=== PATIENT | male | born 1965 | race Caucasian/White ===

== ENCOUNTER 2019-02-21 15:37 | Emergency (ER) | payer OTHER ==
--- NOTE | 2019-02-21 15:59 | EDM.PDOC ---
ED HPI GENERAL MEDICAL PROBLEM - General Stated Complaint: FALL Time Seen by Provider: 02/21/19 15:53 - History of Present Illness INITIAL COMMENTS - FREE TEXT/NARRATIVE: Pt presents with c/o chronic pain of the neck or back. Attempted to evaluate pt who became hostel and verbally abusive with my questions. Stated I would not take his abuse and if he continued this he would be discharged. PT continued to be verbally abusive states [facility] After 1 hr 51 minutes. PT relaxed and worked with provider. Lower Back Pain Score (Numeric/FACES): 10 ED ROS GENERAL - Review of Systems Review Of Systems: See Below Constitutional: Reports: No Symptoms HEENT: Reports: No Symptoms Respiratory: Reports: No Symptoms Cardiovascular: Reports: No Symptoms Endocrine: Reports: No Symptoms GI/Abdominal: Reports: No Symptoms Musculoskeletal: Reports: Back Pain ED EXAM, GENERAL - Physical Exam Exam: See Below Free Text/Narrative:: Patient not evaluated because he became openly hostel and aggressive with provider, law enforcement contacted. PT speaking in full sentences, tried to get off the gurney and come after provider able to move. Pt in no noticeable emergent situation, was not able to perform full exam due to hostel and aggressive behavior. After 1 hrs 52 minutes pt relaxed and worked with provider. Exam Limited By: No Limitations General Appearance: Alert, WD/WN, No Apparent Distress Ears: Normal External Exam Nose: Normal Inspection, Normal Mucosa, No Blood Neck: Other (neck pain ) Respiratory/Chest: No Respiratory Distress, Lungs Clear, Normal Breath Sounds, No Accessory Muscle Use, Chest Non-Tender Cardiovascular: Normal Peripheral Pulses GI/Abdominal: Normal Bowel Sounds, Soft, Non-Tender, No Organomegaly, No Distention, No Abnormal Bruit, No Mass Back Exam: Other (pain on t and l spine, hx of chronic back pain ) Extremities: Normal Inspection, Normal Range of Motion, Non-Tender, Normal Capillary Refill, No Pedal Edema Course - Vital Signs Last Recorded V/S: Last Vital Signs Temp 36.1 C 02/21/19 15:37 Pulse 66 02/21/19 15:37 Resp 20 02/21/19 15:37 BP 146/97 H 02/21/19 15:37 Pulse Ox 100 02/21/19 15:37 - Orders/Labs/Meds Orders: Active Orders 24 hr Category Date Time Status Cervical Spine 2V or 3V [CR] Stat Exams 02/21/19 17:33 Taken Lumbar Spine 2 or 3V [CR] Stat Exams 02/21/19 17:32 Taken Thoracic Spine 2V [CR] Stat Exams 02/21/19 17:30 Taken predniSONE [Take Home: predniSONE 20 MG, 2 Tab Pack] Med 02/21/19 18:18 Once 2 packet PO ONETIME ONE Meds: Medications Discontinued Medications Generic Name Dose Route Start Last Admin Trade Name Terence PRN Reason Stop Dose Admin Ketorolac Tromethamine 60 mg 02/21/19 17:32 02/21/19 17:50 Toradol IM 02/21/19 17:33 60 mg ONETIME ONE Administration Departure - Departure Time of Disposition: 18:22 Disposition: Home, Self-Care 01 Condition: Good Clinical Impression: Back pain - Discharge Information Instructions: Chronic Back Pain Additional Instructions: Follow up with pcp for continued care. Sepsis Event Note - Focused Exam Vital Signs: Vital Signs Temp Pulse Resp BP Pulse Ox 02/21/19 15:37 36.1 C 66 20 146/97 H 100 Date Exam was Performed: 02/21/19 Time Exam was Performed: 18:20 - My Orders Last 24 Hours: My Active Orders 02/21/19 17:30 Thoracic Spine 2V [CR] Stat 02/21/19 17:32 Lumbar Spine 2 or 3V [CR] Stat 02/21/19 17:33 Cervical Spine 2V or 3V [CR] Stat 02/21/19 18:18 predniSONE [Take Home: predniSONE 20 MG, 2 Tab Pack] 2 packet PO ONETIME ONE - Assessment/Plan Last 24 Hours: My Active Orders 02/21/19 17:30 Thoracic Spine 2V [CR] Stat 02/21/19 17:32 Lumbar Spine 2 or 3V [CR] Stat 02/21/19 17:33 Cervical Spine 2V or 3V [CR] Stat 02/21/19 18:18 predniSONE [Take Home: predniSONE 20 MG, 2 Tab Pack] 2 packet PO ONETIME ONE
[2019-02-21] MEDS ORDERED: Ketorolac 60 MG/2 ML SDV IM ONE (17:32)
[2019-02-21] MEDS ORDERED: Take Home: predniSONE 20 MG, 2 Tab Pack PO ONE (18:18)
--- NOTE | 2019-02-21 18:35 | CR ---
[id number] RAD/RAD Cervical Spine 2-3V Exam: RAD Cervical Spine 2-3V Indication:CHRONIC NECK PAIN. Comparison: No prior imaging for comparison. Discussion: Postsurgical change from discectomy and anterior fusion at C5-6 and C6-7. Fused vertebral bodies are in normal alignment. Moderate spondylosis with intervertebral disc height loss at C3-4 and C4-5 as well as C7-T1. No acute fracture or spondylolisthesis. Impression: No acute findings. Rosalio Malcolm MD 02/21/19 1830 Thank you for allowing us to participate in the care of your patient.
--- NOTE | 2019-02-21 18:36 | CR ---
[id number] RAD/RAD Thoracic Spine 2V Exam: RAD Thoracic Spine 2V Indication:PAIN. Comparison: No prior imaging for comparison. Discussion: Multiple moderate changes of spondylosis diffusely throughout the thoracic spine. No radiographically evident acute fracture or compression deformity. No spondylolisthesis. PA view demonstrates slight thoracolumbar levo convexity. Impression: No acute findings. Rosalio Malcolm MD 02/21/19 [id number] Thank you for allowing us to participate in the care of your patient.
--- NOTE | 2019-02-21 18:36 | CR ---
[id number] RAD/RAD Lumbar Spine 2-3V Exam: RAD Lumbar Spine 2-3V Indication:PAIN. Comparison: No prior imaging for comparison. Discussion: Spondylosis, including facet joint arthropathy at L4-5 resulting in grade 1 L4-5 anterolisthesis. Degenerative disc disease and intervertebral disc height loss at L3-4 through L5-S1. No spondylolisthesis. No acute fracture or compression deformity. Impression: No acute findings. Rosalio Malcolm MD 02/21/19 4842 Thank you for allowing us to participate in the care of your patient.
== END 2019-02-21 18:41 | disposition home or self-care (01) ==
LOC: VM.ED 15:37
DX: M54.5 Low back pain (principal); M54.6 Pain in thoracic spine; M54.2 Cervicalgia
CPT/HCPCS: 72040; 72070; 72100; 96372; 99283-GF; 99284-25; A9270-GY; J1885

== ENCOUNTER 2019-03-04 22:08 | Emergency (ER) | payer OTHER, MEDICARE ==
--- NOTE | 2019-03-04 22:56 | EDM.PDOC ---
ED HPI GENERAL MEDICAL PROBLEM - General Chief Complaint: General Stated Complaint: Back pain, ETOH abuse Time Seen by Provider: 03/04/19 22:12 Source of Information: Reports: Patient History Limitations: Reports: No Limitations - History of Present Illness INITIAL COMMENTS - FREE TEXT/NARRATIVE: Pt. presents to ER via EMS. Law enforcement and subsequently EMS was contacted tonight for a welfare check on this patient. Pt. has a history of previous back injury and PTSD and is using alcohol to self medicate. Pt. was in the ER approx. 10 days ago for a fall. Imaging of his spine was negative for acute pathology. Pt. neighbor came to check on him at the request of the patient's mother and he was unable to arouse the patient so the neighbor called 911. Pt. admits to drinking. He was ambulatory on scene and was cooperative. Pt. was alert to self and place, was one day off on date, but is coherently able to recall his past medical history. He states that he has been taking his gabapentin, quitiapine, and hydroxyzine as directed, and states that he sleeps very deeply on these medications, particularly if he is drinking. The [facility] 's conference service coordinator [facility] Pt. denies any severity in the symptoms. No recent trauma. Denies any suicidal or homicidal ideation. Pt. denies any saddle anesthesia or incontinence. Onset: Today Onset Date: 03/04/19 Location: Reports: Back Quality: Reports: Ache, Throbbing Severity: Moderate Improves with: Reports: Rest Worsens with: Reports: Movement Low back pain Pain Score (Numeric/FACES): 10 - Related Data Allergies Allergy/AdvReac Type Severity Reaction Status Date / Time No Known Allergies Allergy Verified 03/04/19 22:59 Home Meds: Home Meds Gabapentin [Neurontin] 800 mg PO TID 03/04/19 [History] Minocycline [Minocin] 100 mg PO BID 03/04/19 [History] Multivitamin [Multi-Vitamin Daily] 1 tab PO DAILY 03/04/19 [History] Propranolol [Inderal] 20 mg PO TID 03/04/19 [History] QUEtiapine Fumarate [Quetiapine Fumarate] 100 mg PO BEDTIME 03/04/19 [History] Thiamine [Vitamin B-1] 100 mg PO DAILY 03/04/19 [History] hydrOXYzine HCL [hydrOXYzine] 100 mg PO QID PRN 03/04/19 [History] Past Medical History Musculoskeletal History: Reports: Back Pain, Chronic Psychiatric History: Reports: Anxiety, Depression, PTSD - Past Surgical History GI Surgical History: Reports: Hernia Repair/Other Musculoskeletal Surgical History: Reports: Other (See Below) Other Musculoskeletal Surgeries/Procedures:: plate in neck ED ROS GENERAL - Review of Systems Review Of Systems: See Below Constitutional: Reports: No Symptoms HEENT: Reports: No Symptoms Respiratory: Reports: No Symptoms Cardiovascular: Reports: No Symptoms Endocrine: Reports: No Symptoms GI/Abdominal: Reports: No Symptoms : Reports: No Symptoms Musculoskeletal: Reports: Back Pain Skin: Reports: No Symptoms Neurological: Reports: No Symptoms Psychiatric: Reports: Anxiety, Other (PTSD). Denies: Homicidal Ideation, Suicidal Ideation Hematologic/Lymphatic: Reports: No Symptoms Immunologic: Reports: No Symptoms ED EXAM, GENERAL - Physical Exam Exam: See Below Exam Limited By: No Limitations General Appearance: Alert, WD/WN, No Apparent Distress Eye Exam: Bilateral Eye: EOMI, PERRL Nose: Normal Inspection, No Blood Throat/Mouth: No Airway Compromise Head: Atraumatic, Normocephalic Neck: Normal Inspection, Supple, Non-Tender, Full Range of Motion Respiratory/Chest: No Respiratory Distress, Lungs Clear, Normal Breath Sounds, No Accessory Muscle Use, Chest Non-Tender Cardiovascular: Normal Peripheral Pulses, Regular Rate, Rhythm, No Edema, No Gallop, No JVD, No Murmur, No Rub Peripheral Pulses: 4+: Radial (L) GI/Abdominal: Soft, Non-Tender, No Organomegaly, No Distention, No Mass (Male) Exam: Deferred Rectal (Males) Exam: Deferred Back Exam: Decreased Range of Motion, Muscle Spasm, Paraspinal Tenderness, Vertebral Tenderness Extremities: Normal Inspection, Normal Range of Motion, Non-Tender, No Pedal Edema, Normal Capillary Refill Neurological: Alert, Oriented, CN II-XII Intact, Normal Cognition, Normal Gait, Normal Reflexes, No Motor/Sensory Deficits Psychiatric: Normal Affect, Normal Mood Skin Exam: Warm, Dry, Intact, Normal Color, No Rash Lymphatic: No Adenopathy Course - Vital Signs Last Recorded V/S: Last Vital Signs Temp 37.1 C 03/04/19 22:08 Pulse 80 03/04/19 22:08 Resp 16 03/04/19 22:08 BP 108/79 03/04/19 22:08 Pulse Ox 97 03/04/19 22:08 - Orders/Labs/Meds Labs: Laboratory Tests 03/04/19 03/04/19 03/04/19 Range/Units 22:50 22:50 22:50 WBC 5.3 (4.0-10.0) x10^3/uL RBC 4.25 L (4.5-6.0) x10^6/uL Hgb 12.4 L (14.0-18.0) g/dL Hct 36.4 L (40.0-52.0) % MCV 85.6 (78.0-93.0) fL MCH 29.2 (26.0-32.0) pg MCHC 34.1 (32.0-36.0) g/dL RDW Coeff of Nixon 16.3 H (10.0-15.0) % Plt Count 130 (130-400) x10^3/uL Neut % (Auto) 49.0 L (50.0-80.0) % Lymph % (Auto) 37.7 (25.0-50.0) % Gregory % (Auto) 10.2 (2.0-11.0) % Eos % (Auto) 2.3 (0.0-4.0) % Baso % (Auto) 0.8 (0.2-1.2) % PT 10.0 (10.0-12.8) SEC INR 0.9 L (2.0-3.5) Sodium 144 (136-145) mmol/L Potassium 4.2 (3.5-5.1) mmol/L Chloride 105 (98-107) mmol/L Carbon Dioxide 28 (21-32) mmol/L Anion Gap 15.2 (10-20) mmol/L BUN 11 (7-18) mg/dL Creatinine 0.9 (0.70-1.30) mg/dL Est Cr Clr Drug Dosing 90.78 mL/min Estimated GFR (MDRD) > 60 Glucose 69 L (74-106) mg/dL Calcium 8.5 (8.5-10.1) mg/dL Corrected Calcium 9.06 (8.5-10.1) mg/dL Magnesium 2.3 (1.8-2.4) mg/dL Total Bilirubin 0.2 (0.2-1.0) mg/dL AST 20 (15-37) U/L ALT 17 (16-63) U/L Alkaline Phosphatase 106 (46-116) U/L Total Protein 6.9 (6.4-8.2) g/dL Albumin 3.3 L (3.4-5.0) g/dL Globulin 3.6 Albumin/Globulin Ratio 0.92 Urine Color (YELLOW) Urine Appearance (CLEAR) Urine pH (5.0-8.0) Ur Specific [place] Urine Protein (NEGATIVE) mg/dL Urine Glucose (UA) (NEGATIVE) mg/dL Urine Ketones (NEGATIVE) mg/dL Urine Occult Blood (NEGATIVE) Urine Nitrite (NEGATIVE) Urine Bilirubin (NEGATIVE) Urine Urobilinogen (0.2) EU/dL Ur Leukocyte Esterase (NEGATIVE) Urine RBC (NOT SEEN) /HPF Urine WBC (NOT SEEN) /HPF Ur Squamous Epith Cells (NEGATIVE) /HPF Urine Bacteria (NEGATIVE) /HPF Urine Mucus (NEGATIVE) /LPF Urine Opiates Screen (NEGATIVE) Ur Buprenorphine Scrn (NEGATIVE) Ur Oxycodone Screen (NEGATIVE) Ur EDDP (Meth Metab) (NEGATIVE) Urine Methadone Screen (NEGATIVE) Ur Barbituates Screen (NEGATIVE) Ur Tricyclics Screen (NEGATIVE) Ur Phencyclidine Scrn (NEGATIVE) Ur Amphetamines Screen (NEGATIVE) U Methamphetamines Scrn (NEGATIVE) Urine MDMA Screen (NEGATIVE) U Benzodiazepines Scrn (NEGATIVE) Urine Cocaine Screen (NEGATIVE) U Marijuana (THC) Screen (NEGATIVE) Ethyl Alcohol 124 H (0-3) mg/dL 03/04/19 03/04/19 Range/Units 23:05 23:05 WBC (4.0-10.0) x10^3/uL RBC (4.5-6.0) x10^6/uL Hgb (14.0-18.0) g/dL Hct (40.0-52.0) % MCV (78.0-93.0) fL MCH (26.0-32.0) pg MCHC (32.0-36.0) g/dL RDW Coeff of Nixon (10.0-15.0) % Plt Count (130-400) x10^3/uL Neut % (Auto) (50.0-80.0) % Lymph % (Auto) (25.0-50.0) % Gregory % (Auto) (2.0-11.0) % Eos % (Auto) (0.0-4.0) % Baso % (Auto) (0.2-1.2) % PT (10.0-12.8) SEC INR (2.0-3.5) Sodium (136-145) mmol/L Potassium (3.5-5.1) mmol/L Chloride (98-107) mmol/L Carbon Dioxide (21-32) mmol/L Anion Gap (10-20) mmol/L BUN (7-18) mg/dL Creatinine (0.70-1.30) mg/dL Est Cr Clr Drug Dosing mL/min Estimated GFR (MDRD) Glucose (74-106) mg/dL Calcium (8.5-10.1) mg/dL Corrected Calcium (8.5-10.1) mg/dL Magnesium (1.8-2.4) mg/dL Total Bilirubin (0.2-1.0) mg/dL AST (15-37) U/L ALT (16-63) U/L Alkaline Phosphatase (46-116) U/L Total Protein (6.4-8.2) g/dL Albumin (3.4-5.0) g/dL Globulin Albumin/Globulin Ratio Urine Color Yellow (YELLOW) Urine Appearance Clear (CLEAR) Urine pH 5.5 (5.0-8.0) Ur Specific [place] <=1.005 Urine Protein Negative (NEGATIVE) mg/dL Urine Glucose (UA) Negative (NEGATIVE) mg/dL Urine Ketones Negative (NEGATIVE) mg/dL Urine Occult Blood Negative (NEGATIVE) Urine Nitrite Negative (NEGATIVE) Urine Bilirubin Negative (NEGATIVE) Urine Urobilinogen 0.2 (0.2) EU/dL Ur Leukocyte Esterase Negative (NEGATIVE) Urine RBC 0-5 (NOT SEEN) /HPF Urine WBC Not seen (NOT SEEN) /HPF Ur Squamous Epith Cells Rare (NEGATIVE) /HPF Urine Bacteria Not seen (NEGATIVE) /HPF Urine Mucus Rare H (NEGATIVE) /LPF Urine Opiates Screen Negative (NEGATIVE) Ur Buprenorphine Scrn Negative (NEGATIVE) Ur Oxycodone Screen Negative (NEGATIVE) Ur EDDP (Meth Metab) Negative (NEGATIVE) Urine Methadone Screen Negative (NEGATIVE) Ur Barbituates Screen Negative (NEGATIVE) Ur Tricyclics Screen Positive H (NEGATIVE) Ur Phencyclidine Scrn Negative (NEGATIVE) Ur Amphetamines Screen Negative (NEGATIVE) U Methamphetamines Scrn Negative (NEGATIVE) Urine MDMA Screen Negative (NEGATIVE) U Benzodiazepines Scrn Negative (NEGATIVE) Urine Cocaine Screen Negative (NEGATIVE) U Marijuana (THC) Screen Negative (NEGATIVE) Ethyl Alcohol (0-3) mg/dL Departure - Departure Time of Disposition: 00:12 Disposition: Home, Self-Care 01 Clinical Impression: Intoxication, Low back pain - Discharge Information Referrals: PCP,Not In Area [Primary Care Provider] - Forms: ED Department Discharge, Interfacility Transfer EMTALA Sepsis Event Note - Focused Exam Vital Signs: Vital Signs Temp Pulse Resp BP Pulse Ox 03/04/19 22:08 37.1 C 80 16 108/79 97 Date Exam was Performed: 03/05/19 Time Exam was Performed: 00:12 - Problem List Review Problem List Initiated/Reviewed/Updated: Yes - Assessment/Plan Plan: Pt. will be transferred to [facility] via EMS. I spoke with both psych and IM regarding this patient. They will have a room for the patient. All questions were answered. Dr. Pisano is accepting.
[2019-03-04 23:17] LABS: CHLORIDE,CL 105 mmol/L (98-107); SODIUM,NA 144 mmol/L (136-145)
[2019-03-04 23:19] LABS: ANION GAP 15.2 mmol/L (10-20)
[2019-03-04 23:24] LABS: BUPRENORPHINE,URINE NEGATIVE (NEGATIVE); METHYLENEDIOXYMETHAMP,UR NEGATIVE (NEGATIVE); PHENCYCLIDINE,URINE NEGATIVE (NEGATIVE)
[2019-03-04 23:25] LABS: MARIJUANA,URINE NEGATIVE (NEGATIVE)
== END 2019-03-05 00:30 | disposition home or self-care (01) ==
LOC: VM.ED 22:08
DX: F10.129 Alcohol abuse with intoxication, unspecified (principal); M54.5 Low back pain; Y90.6 Blood alcohol level of 120-199 mg/100 ml; F32.9 Major depressive disorder, single episode, unspecified
CPT/HCPCS: 36415; 80053; 80305-QW; 81001; 83735; 85025; 85610; 99284-GF; 99285; G0480

== ENCOUNTER 2020-10-12 18:39 | Emergency (ER) | payer OTHER, MEDICARE ==
[2020-10-12] MEDS ORDERED: Lactated Ringers 1,000 ML IV ONE (19:44)
[2020-10-12 19:48] LABS: CHLORIDE,CL 103 mmol/L (98-107); SODIUM,NA 137 mmol/L (136-145)
[2020-10-12 19:49] LABS: ANION GAP 13.7 mmol/L (5-15)
--- NOTE | 2020-10-12 20:03 | CT ---
[id number] CT/CT Head WO IV EXAM: CT Head WO IV CLINICAL DATA: SYNCOPE, FALL, RECENT TBI COMPARISON STUDY: None FINDINGS: No intracranial hemorrhage, extra-axial fluid collection, mass, or acute ischemia. Soft tissues are unremarkable. Paranasal sinuses and mastoid air cells are clear. IMPRESSION: No acute intracranial findings. Gucci Arnold DO 10/12/202000 Thank you for allowing us to participate in the care of your patient.
--- NOTE | 2020-10-12 20:05 | CT ---
[id number] CT/CT Cervical Spine WO IV Exam: CT Cervical Spine WO IV CLINICAL DATA: TRAUMA. COMPARISON: None. FINDINGS: No fracture or subluxation is seen. The C1-C2 articulation is unremarkable. The prevertebral soft tissues are within normal limits. Postsurgical changes following anterior spinal fusion of C5-C7. No evidence of hardware failure or loosening. IMPRESSION: NO FRACTURE OR SUBLUXATION. Gucci Arnold DO 10/12/202002 Thank you for allowing us to participate in the care of your patient.
[2020-10-12 20:20] LABS: BARBITURATE SCREEN,URINE NEGATIVE (NEGATIVE); BENZODIAZEPINES SCREEN,URINE NEGATIVE (NEGATIVE); METHAMPHETAMINE SCREEN, URINE NEGATIVE (NEGATIVE); THC SCREEN,URINE 50 NG/ML POSITIVE (NEGATIVE)
[2020-10-12] MEDS ORDERED: Thiamine 500 MG in Sodium Chloride 0.9% 100 ML IV ONE (20:59)
[2020-10-12] MEDS ORDERED: Multivitamins w-Iron/Ca/FA/Min 1 TAB, Thiamine 100 MG, Folic Acid 1 MG, Magnesium Oxide... PO ONE ×3 (20:59)
[2020-10-12] MEDS ORDERED: Sodium Chloride 0.9% 1,000 ML IV SCH (21:15)
--- NOTE | 2020-10-12 21:23 | EDM.PDOC ---
ED HPI GENERAL MEDICAL PROBLEM - General Chief Complaint: Neurological Problem Stated Complaint: Syncopal episode, neck pain, intoxication Time Seen by Provider: 10/12/20 18:40 Source of Information: Reports: Patient, Family History Limitations: Reports: No Limitations - History of Present Illness INITIAL COMMENTS - FREE TEXT/NARRATIVE: Patient comes emergency department today by ambulance from home with concerns of syncope fall and alcoholism. Patient has a chronic past medical history of daily alcohol usage of anywhere from 8-12 beers a day. He has a history of PTSD as well as cervical spine fixation due to chronic neck pain. Over the past 3 to 4 weeks he has had increasing usage of alcohol at home. He has an episode where he relates about 3-4 times a week where he is just walking along suddenly "blacks out" and ends up on the ground. He has no aura or symptoms prior to this blackout episode. He has never sustained any injuries from his episodes of syncope. He wakes up on the ground. This has become increasingly more frequent over the past couple of weeks. He never has any chest pain shortness of breath vertigo dizziness diplopia palpitations lightheadedness or dizziness prior to these episodes. He has no warning signs of these. Today when he was at home this was once again observed by of family member that lives at home with him there was no loss of consciousness. He does complain of chronic headache nothing new today. He does complain of chronic neck pain nothing new today. He denies any paresthesias of his upper or lower extremities. He denies any change in the functionality of his upper or lower extremities. He denies any diplopia blurred vision. No fever no chills. No chest pain or shortness of breath or difficulty breathing or palpitations. No abdominal pain nausea or vomiting. No hematuria dysuria urinary frequency. No black or tarry stools. He does relate that he drinks alcohol on a daily basis although he rarely if ever has any solid food for consumption as he feels that it makes him sick when he consumes this. He is uninterested in alcohol treatment today. He does take his thiamine daily. He has never been evaluated for these episodes of blacking out. Neck Pain Score (Numeric/FACES): 4 - Related Data Allergies Allergy/AdvReac Type Severity Reaction Status Date / Time No Known Allergies Allergy Verified 10/12/20 18:54 Home Meds: Home Meds Minocycline [Minocin] 100 mg PO BID 03/04/19 [History] Multivitamin [Multi-Vitamin Daily] 1 tab PO DAILY 03/04/19 [History] Propranolol [Inderal] 20 mg PO TID 03/04/19 [History] QUEtiapine Fumarate [Quetiapine Fumarate] 100 mg PO BEDTIME 03/04/19 [History] Thiamine [Vitamin B-1] 100 mg PO DAILY 03/04/19 [History] hydrOXYzine HCL [hydrOXYzine] 100 mg PO QID PRN 03/04/19 [History] Prazosin [Minpress] 1 mg PO DAILY 10/12/20 [History] Prazosin [Minpress] 2 mg PO BEDTIME 10/12/20 [History] atorvaSTATin [Lipitor] 20 mg PO BEDTIME 10/12/20 [History] Past Medical History Musculoskeletal History: Reports: Back Pain, Chronic Psychiatric History: Reports: Anxiety, Depression, PTSD - Past Surgical History GI Surgical History: Reports: Hernia Repair/Other Musculoskeletal Surgical History: Reports: Other (See Below) Other Musculoskeletal Surgeries/Procedures:: plate in neck Social & Family History - Tobacco Use Tobacco Use Status *Q: Unknown Ever Used Tobacco - Recreational Drug Use Recreational Drug Use: Yes Recreational Drug Type: Reports: Marijuana/Hashish ED ROS GENERAL - Review of Systems Review Of Systems: Comprehensive ROS is negative, except as noted in HPI. ED EXAM, NEURO - Physical Exam Exam: See Below Text/Narrative:: Smells highly of alcoholic beverages. C Collar in place. ALert appropriate and cooperative and without distress. Exam Limited By: Intoxication General Appearance: Alert, WD/WN, No Apparent Distress Eye Exam: Bilateral Eye: EOMI, Nystagmus (Hyizontal nystagmus minimal), PERRL Ears: Normal External Exam, Normal TMs Nose: Normal Inspection Throat/Mouth: Normal Inspection, Normal Lips, Normal Oropharynx Head Exam: Atraumatic, Normocephalic Neck: Normal Inspection, Supple, Non-Tender, Full Range of Motion. No: Tender Lateral, Tender Midline Respiratory/Chest: No Respiratory Distress, Lungs Clear, Normal Breath Sounds, No Accessory Muscle Use, Chest Non-Tender Cardiovascular: Normal Peripheral Pulses, Regular Rate, Rhythm, No Edema, No Murmur GI/Abdominal: Normal Bowel Sounds, Soft, Non-Tender, No Distention, No Abnormal Bruit (Male) Exam: Deferred Rectal (Males) Exam: Deferred Neurological: Alert, Normal Mood/Affect, Normal Dorsiflexion, CN II-XII Intact, Normal Plantar Flexion, Normal Reflexes, No Motor/Sensory Deficits, Oriented x 3, Other (Mild ataxia unsure if it is related to intoxication or underlying pathology. ) DTR: 2+: Bicep (R), Bicep (L), Patella (R), Patella (L), Achilles (R), Achilles (L) Back Exam: Normal Inspection, Full Range of Motion. No: Paraspinal Tenderness, Vertebral Tenderness Extremities: Normal Inspection, Normal Range of Motion, No Pedal Edema, Normal Capillary Refill Psychiatric: Normal Affect, Normal Mood Skin Exam: Warm, Dry, Intact, Normal Color, No Rash Course - Vital Signs Last Recorded V/S: Last Vital Signs Temp 98.0 F 10/12/20 18:39 Pulse 71 10/12/20 18:39 Resp 18 10/12/20 18:39 BP 130/94 H 10/12/20 18:39 Pulse Ox 100 10/12/20 18:39 - Orders/Labs/Meds Labs: Laboratory Tests 10/12/20 10/12/20 10/12/20 Range/Units 19:19 19:19 19:19 WBC 4.3 (4.0-10.0) x10^3/uL RBC 3.91 L (4.5-6.0) x10^6/uL Hgb 11.3 L (14.0-18.0) g/dL Hct 32.1 L (40.0-52.0) % MCV 82.1 D (78.0-93.0) fL MCH 28.9 (26.0-32.0) pg MCHC 35.2 (32.0-36.0) g/dL RDW Coeff of Nixon 13.3 (10.0-15.0) % Plt Count 97 L (130-400) x10^3/uL Neut % (Auto) 45.5 L (50.0-80.0) % Lymph % (Auto) 43.4 (25.0-50.0) % Clinch % (Auto) 9.2 (2.0-11.0) % Eos % (Auto) 1.2 (0.0-4.0) % Baso % (Auto) 0.7 (0.2-1.2) % Sodium 137 (136-145) mmol/L Potassium 3.7 (3.5-5.1) mmol/L Chloride 103 (98-107) mmol/L Carbon Dioxide 24 (21-32) mmol/L Anion Gap 13.7 (5-15) mmol/L BUN 11 (7-18) mg/dL Creatinine 1.1 (0.70-1.30) mg/dL Est Cr Clr Drug Dosing TNP Estimated GFR (MDRD) > 60 Glucose 87 (70-99) mg/dL Lactic Acid 2.4 H* (0.4-2.0) mmol/L Calcium 7.6 L (8.5-10.1) mg/dL Corrected Calcium 8.6 (8.5-10.1) mg/dL Magnesium 2.0 (1.8-2.4) mg/dL Total Bilirubin 1.0 (0.2-1.0) mg/dL AST 240 H (15-37) U/L ALT 94 H (16-63) U/L Alkaline Phosphatase 137 H (46-116) U/L Troponin I High Sens < 4 (<=76) ng/L Total Protein 6.1 L (6.4-8.2) g/dL Albumin 2.8 L (3.4-5.0) g/dL Globulin 3.3 Albumin/Globulin Ratio 0.85 Urine Color (YELLOW) Urine Appearance (CLEAR) Urine pH (5.0-8.0) Ur Specific Berne Urine Protein (NEGATIVE) mg/dL Urine Glucose (UA) (NEGATIVE) mg/dL Urine Ketones (NEGATIVE) mg/dL Urine Occult Blood (NEGATIVE) Urine Nitrite (NEGATIVE) Urine Bilirubin (NEGATIVE) Urine Urobilinogen (0.2) EU/dL Ur Leukocyte Esterase (NEGATIVE) Urine Opiates Screen (NEAGTIVE) Ur Buprenorphine Scrn (NEGATIVE) Ur Oxycodone Screen (NEGATIVE) Urine Methadone Screen (NEGATIVE) Ur Barbiturates Screen (NEGATIVE) Ur Phencyclidine Scrn (NEGATIVE) Ur Amphetamine Screen (NEGATIVE) U Methamphetamines Scrn (NEGATIVE) Urine MDMA Screen (NEGATIVE) U Benzodiazepines Scrn (NEGATIVE) U Cocaine Metab Screen (NEGATIVE) U Marijuana (THC) Screen (NEGATIVE) Ethyl Alcohol 229 H (0-3) mg/dL SARS CoV-2 RNA Rapid PADMINI (NEGATIVE) 10/12/20 10/12/20 10/12/20 Range/Units 20:10 20:10 22:00 WBC (4.0-10.0) x10^3/uL RBC (4.5-6.0) x10^6/uL Hgb (14.0-18.0) g/dL Hct (40.0-52.0) % MCV (78.0-93.0) fL MCH (26.0-32.0) pg MCHC (32.0-36.0) g/dL RDW Coeff of Nixon (10.0-15.0) % Plt Count (130-400) x10^3/uL Neut % (Auto) (50.0-80.0) % Lymph % (Auto) (25.0-50.0) % Clinch % (Auto) (2.0-11.0) % Eos % (Auto) (0.0-4.0) % Baso % (Auto) (0.2-1.2) % Sodium (136-145) mmol/L Potassium (3.5-5.1) mmol/L Chloride (98-107) mmol/L Carbon Dioxide (21-32) mmol/L Anion Gap (5-15) mmol/L BUN (7-18) mg/dL Creatinine (0.70-1.30) mg/dL Est Cr Clr Drug Dosing Estimated GFR (MDRD) Glucose (70-99) mg/dL Lactic Acid (0.4-2.0) mmol/L Calcium (8.5-10.1) mg/dL Corrected Calcium (8.5-10.1) mg/dL Magnesium (1.8-2.4) mg/dL Total Bilirubin (0.2-1.0) mg/dL AST (15-37) U/L ALT (16-63) U/L Alkaline Phosphatase (46-116) U/L Troponin I High Sens (<=76) ng/L Total Protein (6.4-8.2) g/dL Albumin (3.4-5.0) g/dL Globulin Albumin/Globulin Ratio Urine Color Yellow (YELLOW) Urine Appearance Clear (CLEAR) Urine pH 5.5 (5.0-8.0) Ur Specific Berne <=1.005 Urine Protein Negative (NEGATIVE) mg/dL Urine Glucose (UA) Negative (NEGATIVE) mg/dL Urine Ketones Negative (NEGATIVE) mg/dL Urine Occult Blood Negative (NEGATIVE) Urine Nitrite Negative (NEGATIVE) Urine Bilirubin Negative (NEGATIVE) Urine Urobilinogen 0.2 (0.2) EU/dL Ur Leukocyte Esterase Negative (NEGATIVE) Urine Opiates Screen Negative (NEAGTIVE) Ur Buprenorphine Scrn Negative (NEGATIVE) Ur Oxycodone Screen Negative (NEGATIVE) Urine Methadone Screen Negative (NEGATIVE) Ur Barbiturates Screen Negative (NEGATIVE) Ur Phencyclidine Scrn Negative (NEGATIVE) Ur Amphetamine Screen Negative (NEGATIVE) U Methamphetamines Scrn Negative (NEGATIVE) Urine MDMA Screen Negative (NEGATIVE) U Benzodiazepines Scrn Negative (NEGATIVE) U Cocaine Metab Screen Negative (NEGATIVE) U Marijuana (THC) Screen Positive H (NEGATIVE) Ethyl Alcohol (0-3) mg/dL SARS CoV-2 RNA Rapid PADMINI Negative (NEGATIVE) Meds: Medications Discontinued Medications Generic Name Dose Route Start Last Admin Trade Name Freq PRN Reason Stop Dose Admin Multivitamins/Minerals 1 tab/ 0 tab 10/12/20 20:59 10/12/20 21:29 Thiamine HCl 100 mg/ Folic PO 10/12/20 21:00 1 each Acid 1 mg/ Magnesium Oxide 400 ONETIME ONE Administration mg Lactated Ringer's 1,000 mls @ 999 mls/hr 10/12/20 19:44 10/12/20 19:42 Ringers, Lactated IV 10/12/20 20:44 999 mls/hr ONETIME ONE Administration Thiamine HCl 500 mg/ Sodium 105 mls @ 200 mls/hr 10/12/20 20:59 10/12/20 21:45 Chloride IV 10/12/20 21:30 200 mls/hr ONETIME ONE Administration Sodium Chloride 1,000 mls @ 150 mls/hr 10/12/20 21:15 10/12/20 21:45 Normal Saline IV 150 mls/hr ASDIRECTED VARUN Administration - Radiology Interpretation Free Text/Narrative:: CT of the head per radiology shows no acute intracranial findings. Left tissues are unremarkable. Paranasal sinuses mastoid air cells are clear. No intracranial hemorrhage or axial fluid collection or signs of acute ischemia CT cervical spine per radiology shows no fracture or subluxation. C1-2 articulation is unremarkable. Postsurgical changes following anterior spinal fusion C5-7. No evidence of hardware failure or loosening - Re-Assessments/Exams Free Text/Narrative Re-Assessment/Exam: Upon arrival the patient has no neurological deficits. He has no posterior midline cervical tenderness. Although with his level of intoxication the patient was left in the c-collar. Labs are drawn. CT of the head and neck were negative for any acute pathology. The patient had removed his c-collar on his own as it is too uncomfortable for him. This was removed post CT results. Neurological exam is unchanged. Laboratory evaluation shows a mild anemia with hemoglobin 11.3. Platelets 97. CMP with a lactic acid of 2.4 which is most likely due to the alcohol intake as well as dehydration he has no signs of sepsis. The rest of his panel is unremarkable. AST ALT alkaline phosphatase mildly elevated most likely due to his chronic alcoholism with a normal T bili. Urinalysis is unremarkable. Urine drug screen positive for THC otherwise negative. Alcohol positive at 229. Covid negative. I am unsure of what is causing his episodes of "blackout". Although he does not suffer any physical harm or damage from these what he reports to be like a pure syncopal episode. This could be cardiac in nature although I am unable to rule it out at this time. Most likely though this is most likely due to his chronic alcohol usage poor nutritional status. The patient's family as well as the patient are concerned for his recurrent syncopal episodes and he has not followed up as previously discussed with his family or seen any medical person for his concerns of the syncope. We do not have a Holter monitor to evaluate for cardiac dysrhythmias causing his syncopal episodes. I also have some mild concerns for Wernicke's encephalopathy nothing overtly but with his history and his mild neurological ataxia nystagmus a wide shuffling slow gait he does have some of the clinical features of Warnicke's encephalopathy. He was given 500 mg of thiamine IV as well as oral banana pack and IV hydration. THe patient andhis family would really like him to be evaluated at the [place] for all the above concerns and initially the patient was agreeable to to this plan. I called and spoke with Dr. Pisano at the [facility] in [place]. HPI ER COURSE findings and concerns were relayed to the patient. Once the ambulance came to transport the patient to the [place] the patient has now decided that he doesn't want any hospitalization or observation. The patient himself feels that this is most likely related to his poor metabolic intake as well as chronic alcohol usage. He is alert and appropriate interactive does not appear really impaired all despite his alcohol level being 229. His family is okay with taking him home. The patient is understanding of the risks to include seizures cardiac dysrhythmias head injury cervical injury with the refusal of hospitalization at this time. He does promise that he will follow-up on Wednesday to get a Holter monitor as well as evaluation for his recurrent syncopal episodes. At this time I feel that the patient despite his alcoholism is competent to make decisions as well as his family who agreed to take him home observe him take care of him and monitor him. Patient will follow up with his primary care on Wednesday for Holter monitor placement as well as for their evaluation. THe patient did sign out AMA with discharge instructions and dispite my concern for observation I am okay with him going home with his family for observation and follow up in the clinic on wednesday. Departure - Departure Time of Disposition: 22:47 Disposition: Against Medical Advice 07 Clinical Impression: Syncope and collapse, Wernicke encephalopathy Acute alcoholic intoxication in alcoholism (blood level 0.08-0.29) Qualifiers: Complication of substance-induced condition: uncomplicated Qualified Code(s): F10.220 - Alcohol dependence with intoxication, uncomplicated - Discharge Information Referrals: Esthela Shanks MD [Primary Care Provider] - Forms: ED Department Discharge, Interfacility Transfer EMTALA Additional Instructions: You have chosen to leave against medical advice. I do not advise this and you have been giving the concerns I have and risk to include or buttermaker continuous churn disability not following with my concerns. Although I can't make you do anything. Consider alcohol treatment with you PCP or [facility]. Stop alcohol intake. Drink plenty of fluids especially electrolyte containing fluids like gatorade and or powerade. Make sure and eat regular meals. Start taking a daily multivitamin OTC with your thiamine. Contact your PCP on Wednesday and see if you can get a Holter monitor for your heart due to the syncopal episodes. Return to the ED if new or worsening symptoms. Follow as above. Sepsis Event Note (ED) - Evaluation Sepsis Screening Result: No Definite Risk
--- NOTE | 2020-10-16 13:51 | PCM.EKG ---
#1 Interpretation EKG Date: 10/12/20 Time: 19:08 Rhythm: NSR Rate (Beats/Min): 68 Holley: Normal P-Wave: Present QRS: Normal ST-T: Normal QT: Prolonged Comparison: NA - No Prior EKG
== END 2020-10-12 23:06 | disposition left against medical advice (07) ==
LOC: VM.ED 18:39
DX: R55 Syncope and collapse (principal); F10.220 Alcohol dependence with intoxication, uncomplicated; E51.2 Wernicke's encephalopathy; Y90.8 Blood alcohol level of 240 mg/100 ml or more; Z20.822 Contact with and (suspected) exposure to COVID-19; Z79.899 Other long term (current) drug therapy
CPT/HCPCS: 36415; 70450; 72125; 80053; 80305-QW; 80307; 81003; 83605; 83735; 84146; 84484; 85025; 96365; 99284; 99285-25; A9270-GY; J3411; J7030; J7120; U0002

== ENCOUNTER 2024-10-03 00:50 | Emergency (ER) | payer OTHER, MEDICARE ==
[2024-10-03] MEDS ORDERED: Sodium Chloride 0.9% 10 ML Syringe FLUSH PRN (01:08)
[2024-10-03 01:17] LABS: BASOPHILS ABSOLUTE AUTO 0.1 x10^3/uL (0.0-0.2); BASOPHILS PERCENT AUTO 0.7 % (0.2-1.2); EOSINOPHILS ABSOLUTE AUTO 0.1 x10^3/uL (0.0-0.5); EOSINOPHILS PERCENT AUTO 0.7 % (0.0-4.0); IMMATURE GRAN ABSOLUTE AUTO 0.12 x10^3/uL (0.00-0.07); IMMATURE GRAN PERCENT AUTO 1.60 % (0.00-0.43); LYMPHOCYTES ABSOLUTE AUTO 2.5 x10^3/uL (1.0-4.8); LYMPHOCYTES PERCENT AUTO 32.6 % (25.0-50.0); MONOCYTES ABSOLUTE AUTO 0.4 x10^3/uL (0.0-0.8); MONOCYTES PERCENT AUTO 5.7 % (2.0-11.0); NEUTROPHILS ABSOLUTE AUTO 4.4 x10^3/uL (1.8-7.7); NEUTROPHILS PERCENT AUTO 58.7 % (50.0-80.0); PLATELET COUNT,PLT 132 x10^3/uL (130-400); RED BLOOD CELL COUNT 4.46 x10^6/uL (4.5-6.0); WHITE BLOOD CELL COUNT,WBC 7.6 x10^3/uL (4.0-10.0)
[2024-10-03 01:25] LABS: A/G RATIO 0.94; ALANINE AMINOTRANSFERASE,ALT 41 U/L (16-63); ASPARTATE AMNIOTRANSFERASE,AST 86 U/L (15-37); BILIRUBIN TOTAL 0.3 mg/dL (0.2-1.0); BLOOD UREA NITROGEN,BUN 7 mg/dL (7-18); CARBON DIOXIDE,CO2 24 mmol/L (21-32); CHLORIDE,CL 101 mmol/L (98-107); CREATININE 0.9 mg/dL (0.70-1.30); ETHANOL BLOOD MEDICAL 221 mg/dL (0-3); GLUCOSE RANDOM 89 mg/dL (70-99); POTASSIUM,K 3.5 mmol/L (3.5-5.1); PROTEIN TOTAL,TP 7.0 g/dL (6.4-8.2); SODIUM,NA 137 mmol/L (136-145)
[2024-10-03 01:27] LABS: ESTIMATED GFR 98 mL/min (>=60); INR 0.9 (0.9-1.1); PTT,PARTIAL THROMBOPLSTIN TIME 25.0 SEC (23.5-33.2)
[2024-10-03] MEDS: Iopamidol 612 MG/ML 100 ML Bottle IVPUSH ONE (02:33)
[2024-10-03] MEDS: Lactated Ringers 1,000 ML IV ONE (03:15)
== END 2024-10-03 04:20 | disposition short-term general hospital (02) ==
LOC: VM.ED 00:50
DX: M54.50 Low back pain, unspecified (principal); F10.120 Alcohol abuse with intoxication, uncomplicated; I10 Essential (primary) hypertension; Z79.899 Other long term (current) drug therapy; V49.59XA Passenger injured in collision with other motor vehicles in traffic accident, initial encounter; Y93.89 Activity, other specified
CPT/HCPCS: 70450; 71045; 71260; 72125; 74177; 80053; 80307; 83735; 85025; 85610; 85730; 93005; 93010; 96361; 96374; 99284; 99285; J7120; Q9967; J1171